=== PATIENT | male | born 1960 | race Caucasian/White ===

== ENCOUNTER 2016-11-23 22:05 | Emergency (ER) | payer OTHER ==
[~2016-11-23] VITALS: Ht 180.3 cm; Wt 81.0 kg
[2016-11-23] MEDS ORDERED: ALPR0.5T8 PO (22:15)
[2016-11-23] MEDS ORDERED: ETRA200T PO (22:15)
[2016-11-23] MEDS ORDERED: EMTR1TAB13 PO (22:15)
[2016-11-23] MEDS ORDERED: CARV3 PO (22:15)
[2016-11-23] MEDS ORDERED: CLOP75 PO (22:15)
[2016-11-23] MEDS ORDERED: HYDR-3705 PO (22:15)
[2016-11-23] MEDS ORDERED: TAMS0.4C32 PO (22:15)
[2016-11-23] MEDS ORDERED: RALT400T PO (22:15)
[2016-11-24 00:26] VITALS: BP 120/80
== END 2016-11-24 01:29 | disposition home or self-care (01) ==
LOC: EMS 22:06
DX: R22.42 Localized swelling, mass and lump, left lower limb (principal); J44.9 Chronic obstructive pulmonary disease, unspecified; Z88.1 Allergy status to other antibiotic agents
CPT/HCPCS: 93971; 99284